=== PATIENT | female | born 1990 | race African-American/Black ===

== ENCOUNTER 2023-07-07 05:12 | Emergency (ER) | payer MEDICAID ==
[~2023-07-07] VITALS: Ht 180.3 cm; Wt 80.8 kg
[2023-07-07 06:33] VITALS: BP 125/81; PULSE 61; RESP 18; TEMP 98.3; O2SAT 100
[2023-07-07] MEDS: LIDOcaine 4% (40 mg/ml) topical solution 50ml TP ONE (07:07)
[2023-07-07] MEDS ORDERED: CEPH-585 PO (07:35)
== END 2023-07-07 07:52 | disposition home or self-care (01) ==
LOC: ER 05:18
DX: J86.9 Pyothorax without fistula (principal); J45.909 Unspecified asthma, uncomplicated; Z79.2 Long term (current) use of antibiotics
CPT/HCPCS: 97597; 99284; A6258

== ENCOUNTER 2023-12-29 09:57 | Emergency (ER) | payer MEDICAID ==
[~2023-12-29] VITALS: Ht 172.7 cm; Wt 96.7 kg
[~2023-12-29 09:57] MED LIST: CEPH-585 PO
[2023-12-29 10:28] VITALS: TEMP 97.9
[2023-12-29 11:36] LABS: BASOPHILS % (AUTO) 0.4 % (0-1); EOSINOPHILS # (AUTO) 0.3 X10'3 (0-0.9); EOSINOPHILS % (AUTO) 4.8 % (0-6); HEMOGLOBIN 11.4 g/dl (12.0-16.0); LYMPHOCYTES # (AUTO) 1.7 X10'3 (1.1-4.8); LYMPHOCYTES % (AUTO) 28.8 % (21-51); MEAN CORPUSCULAR HEMOGLOBIN 28.3 PG (27.0-31.0); MEAN CORPUSCULAR HGB CONC 32.5 g/dL (33.0-36.5); MEAN CORPUSCULAR VOLUME 87.2 FL (78-98); MEAN PLATELET VOLUME 9.4 FL (7.4-10.4); MONOCYTES # (AUTO) 0.6 X10'3 (0-0.9); MONOCYTES % (AUTO) 10.1 % (2-12); NEUTROPHILS # (AUTO) 3.3 X10'3 (1.8-7.7); NEUTROPHILS % (AUTO) 55.9 % (42-75); PLATELET COUNT 196 X10'3 (140-440); RED BLOOD COUNT 4.02 X10'6 (4.20-5.60); RED CELL DISTRIBUTION WIDTH 14.2 % (11.5-14.5); WHITE BLOOD COUNT 5.8 X10'3 (4.5-11.0)
[2023-12-29 11:52] LABS: D-DIMER 0.85 MG/L FEU (0-0.50)
[2023-12-29 12:21] LABS: ALANINE AMINOTRANSFERASE 16 U/L (12-78); ALBUMIN 3.8 G/DL (3.4-5.0); ALBUMIN/GLOBULIN RATIO 0.9 (1.1-1.5); ALKALINE PHOSPHATASE 61 IU/L (46-116); ASPARTATE AMINO TRANSFERASE 13 U/L (10-37); BILIRUBIN,TOTAL 0.4 MG/DL (0.1-1.0); BLOOD UREA NITROGEN 8 MG/DL (7-18); BUN/CREATININE RATIO 10.1 (10.0-20.0); CALCIUM 8.6 MG/DL (8.5-10.1); CREATININE 0.79 MG/DL (0.40-0.90); GLUCOSE 80 MG/DL (70-104); POTASSIUM 3.8 MMOL/L (3.5-5.1); SODIUM 139 MMOL/L (135-145); TOTAL CARBON DIOXIDE 25.2 MMOL/L (24-32); TOTAL PROTEIN 7.9 G/DL (6.4-8.2); eCRCL 101 ML/MIN; eGFR > 90 ML/MIN
[2023-12-29 12:33] LABS: ANION GAP 7 (8-16); CHLORIDE 107 MMOL/L (99-107)
[2023-12-29 12:34] LABS: BETA HCG,QUANTITATIVE < 1.0 mIU/ml
[2023-12-29] MEDS ORDERED: BUPIVAcaine 0.5% W/EPI /PF 10ml vial IJ STA (13:23)
[2023-12-29] MEDS ORDERED: BUPIVAcaine 0.5% W/EPI /PF 30ml vial IJ STA (13:34)
[2023-12-29] MEDS: BUPIVAcaine/PF 2.5 mg/ml (0.25%) 30ml vial IJ ONE (14:23)
[2023-12-29] MEDS: triamcinolone acetonide 40mg/ml inj IM ONE (14:23)
[2023-12-29 14:51] VITALS: BP 114/77; PULSE 55; RESP 18; O2SAT 100
== END 2023-12-29 14:52 | disposition home or self-care (01) ==
LOC: ER 09:57
DX: M77.12 Lateral epicondylitis, left elbow (principal); M79.602 Pain in left arm; M79.89 Other specified soft tissue disorders; J45.909 Unspecified asthma, uncomplicated; Z79.899 Other long term (current) drug therapy
CPT/HCPCS: 20552; 36415; 73080; 80053; 84702; 85025; 85379; 85610; 93971; 99284